=== PATIENT | male | born 1960 | race American Indian/Alaskan Native ===

== ENCOUNTER 2016-09-26 20:10 | Emergency (ER) | payer SELFPAY ==
[2016-09-26] MEDS ORDERED: Sodium Chloride 0.9% 1,000 ML IV ONE (20:27)
--- NOTE | 2016-09-26 20:32 | C.PDOC ---
History Of Present Illness A 55 y/o male with a Hx of DM, c/o dizziness while driving today. Pt notes not having eaten anything since yesterday. Pt reports numbness to the bilateral extremities, but denies headache, LOC, Lightheadedness, fever, chills, nausea, vomiting, diarrhea, or any other complaints. Time Seen by Provider: 09/26/16 20:32 Chief Complaint (Nursing): Dizziness/Lightheaded History Per: Patient History/Exam Limitations: no limitations Onset/Duration Of Symptoms: Hrs Current Symptoms Are (Timing): Still Present Activity At Onset Of Symptoms: Other (Driving) Fall Associated With With Symptoms: No Severity: Mild Recent travel outside of the [place]: No Additional History Per: Patient Past Medical History Reviewed: Historical Data, Nursing Documentation, Vital Signs Vital Signs: Last Vital Signs Temp 98.6 F 09/26/16 20:13 Pulse 97 H 09/26/16 20:13 Resp 20 09/26/16 20:13 BP 126/77 09/26/16 20:13 Pulse Ox 99 09/27/16 00:07 - Medical History PMH: HIV Family History: States: Unknown Family Hx - Social History Hx Alcohol Use: No Hx Substance Use: No Review Of Systems Except As Marked, All Systems Reviewed And Found Negative. Constitutional: Negative for: Fever, Chills Cardiovascular: Negative for: Light Headedness Gastrointestinal: Negative for: Nausea, Vomiting, Diarrhea Neurological: Positive for: Dizziness. Negative for: Other (LOC) Physical Exam - Physical Exam Appears: Non-toxic, No Acute Distress Skin: Warm, Dry Head: Atraumatic, Normacephalic Eye(s): bilateral: Normal Inspection Oral Mucosa: Moist Chest: Symmetrical Cardiovascular: Rhythm Regular, No Murmur Respiratory: Normal Breath Sounds, No Accessory Muscle Use, No Rales, No Rhonchi , No Wheezing Gastrointestinal/Abdominal: Soft, No Tenderness Back: Normal Inspection, No CVA Tenderness Extremity: Normal ROM, No Tenderness, No Pedal Edema, No Deformity, No Swelling Extremity: Bilateral: Normal Color And Temperature Neurological/Psych: Oriented x3, Normal Speech, Normal Cognition, Normal Cranial Nerves, Normal Motor, Normal Sensation, Other (NO focal deficit) Gait: Steady ED Course And Treatment - Laboratory Results Result Diagrams: 09/26/16 20:40 09/26/16 20:40 ECG: Interpreted By Me, Viewed By Me ECG Rhythm: Sinus Rhythm, PVC ECG Interpretation: Normal, No Acute Changes Interpretation Of ECG: Sinus rhythm with PVC, normal tracings Rate From EC O2 Sat by Pulse Oximetry: 99 (RA) Pulse Ox Interpretation: Normal - CT Scan/US CT Head w/o contrast Other Rad Studies (CT/US): Interpreted By Me, Read By Radiologist CT/US Interpretation: EXAM: CT Head Without Intravenous Contrast. CLINICAL HISTORY: 55 years old, male; Pain; Headache; Headache not specified. TECHNIQUE : Axial computed tomography images of the head/brain without intravenous contrast. This CT exam. was performed using one or more of the following dose reduction techniques: automated exposure. control, adjustment of the mA and/or kV according to patient size, and/or use of iterative. reconstruction technique. EXAM DATE/TIME: 09/26/2016 8:27 PM. COMPARISON: No relevant prior studies available. FINDINGS: Brain: Mild volume loss and white matter disease are identified. There is no acute infarct or edema. No hemorrhage. Ventricles : Unremarkable. No ventriculomegaly. Bones/joints: Unremarkable. No acute fracture. Soft tissues: Unremarkable. Sinuses: There is opacification of the right frontal sinus. There is no sinus wall destruction or. sclerosis. Mastoid air cells: There is a small amount of fluid in the right mastoid air cells. IMPRESSION: Findings are suggestive of mild frontal sinusitis.Clinical correlation is advised. Medical Decision Making Medical Decision Making: Impression: A 55 y/o male with a Hx of DM, c/o dizziness while driving today. Plans: CT Head w/o EKG Blood labs IV fluids Glucose, POC UA Reassess Disposition Counseled Patient/Family Regarding: Diagnosis - Disposition Referrals: [facility] [Outside] Disposition: HOME/ ROUTINE Disposition Time: 00:20 Condition: STABLE Additional Instructions: to take own diabetic medication regularly Prescriptions: Glyburide/Metformin HCl [Glyburid-Metformin 1.25-250 mg] 1 tab PO DAILY #30 tab Instructions: Diabetic Hyperglycemia (ED) - POA Present On Arrival: None - Clinical Impression Clinical Impression: Diabetes mellitus, Hyperglycemia - Scribe Statement The provider has reviewed the documentation as recorded by the Scribe Bryan barillas All medical record entries made by the Scribe were at my direction and personally dictated by me. I have reviewed the chart and agree that the record accurately reflects my personal performance of the history, physical exam, medical decision making, and the department course for this patient. I have also personally directed, reviewed, and agree with the discharge instructions and disposition.
[2016-09-26 20:44] LABS: BASO % 0.5 % (0.0-2.0); EOS % 0.5 % (0.0-4.0); HEMATOCRIT 35.6 % (35.0-51.0); LYMPH # 1.8 K/uL (1.0-4.3); LYMPH % 33.7 % (20.0-40.0); MEAN CELL VOLUME 87.6 fL (80.0-94.0); MEAN CORPUSCULAR HEMOGLOBIN 28.5 pg (27.0-31.0); MEAN CORPUSCULAR HGB CONC 32.5 g/dL (33.0-37.0); MEAN PLATELET VOLUME 8.5 fL (7.2-11.7); MONO # 0.5 K/uL (0.0-0.8); RED CELL DISTRIBUTION WIDTH 13.5 % (11.5-14.5); WHITE BLOOD COUNT 5.2 K/uL (4.8-10.8)
[2016-09-26 20:52] LABS: CHLORIDE 101 mmol/L (98-107); SODIUM 137 mmol/L (132-148)
[2016-09-26 20:53] LABS: POTASSIUM 4.5 mmol/L (3.6-5.2)
[2016-09-26 20:55] LABS: ALKALINE PHOSPHATASE 65 U/L (38-126); ALT/SGPT 21 U/L (21-72); AST/SGOT 31 U/L (17-59); BILIRUBIN,TOTAL 0.7 mg/dL (0.2-1.3); BLOOD UREA NITROGEN 14 mg/dL (9-20); CALCIUM 9.1 mg/dl (8.6-10.4); CARBON DIOXIDE 23 mmol/L (22-30); GFR AFRICAN-AMERICAN > 60; GLUCOSE,RANDOM 279 mg/dL (75-110); TOTAL PROTEIN 8.1 g/dL (6.3-8.3)
[2016-09-26] MEDS ORDERED: (Novolin R) Insulin Human Regular 100 units/ml vial SC ONE ×2 (21:22→23:37)
[2016-09-26] MEDS ORDERED: (Novolin R) Insulin Human Regular 100 units/ml vial ONE (21:34)
[2016-09-26 22:16] LABS: RBC URINE < 1 /hpf (0-3); URINE BACTERIA RARE (<OCC); URINE BILIRUBIN NEGATIVE (NEGATIVE); URINE BLOOD NEGATIVE (NEGATIVE); URINE COLOR Yellow (YELLOW); URINE GLUCOSE (UA) 3+ mg/dL (Normal); URINE KETONE NEGATIVE (NEGATIVE); URINE LEUKOCYTE ESTERASE NEG Leu/uL (Negative); URINE PROTEIN 2+ mg/dL (NEGATIVE); URINE UROBILINOGEN NORMAL mg/dL (0.2-1.0); WBC URINE < 1 /hpf (0-5)
[2016-09-26] MEDS ORDERED: Sodium Chloride 0.9% 500 ML IV ONE (23:36)
[2016-09-27 00:24] VITALS: BP 136/78; PULSE 75; RESP 18; TEMP 98.3; O2SAT 100
--- NOTE | 2016-09-27 08:13 | CT ---
PROCEDURE: CT HEAD WITHOUT CONTRAST. HISTORY: Headache COMPARISON: None available. TECHNIQUE: Axial computed tomography images were obtained through the head/brain without intravenous contrast. Radiation dose: Total exam DLP = 906 mGy-cm. This CT exam was performed using one or more of the following dose reduction techniques: Automated exposure control, adjustment of the mA and/or kV according to patient size, and/or use of iterative reconstruction technique. FINDINGS: HEMORRHAGE: No intracranial hemorrhage. BRAIN: No mass effect or edema. Mild volume loss. Scattered focal lucencies in the subcortical and periventricular white matter suggestive for chronic microvascular ischemic change. Focal hypodensity in the left external capsule is suggestive for chronic ischemic change. VENTRICLES: Unremarkable. No hydrocephalus. CALVARIUM: Unremarkable. PARANASAL SINUSES: Opacification of the right frontal sinus. MASTOID AIR CELLS: Small amount of fluid in the right mastoid air cells. OTHER FINDINGS: None. IMPRESSION: Findings suggestive for a mild frontal sinusitis. Clinical correlation. Chronic microvascular ischemic changes. Focal hypodensity in the left external capsule is suggestive for chronic ischemic change. Mild volume loss. If focal neurologic deficit or headache persists, consider MRI. These findings were preliminarily reported at 9:20 p.m. on 09/26/[address] Jose M Massey from [facility].
--- NOTE | 2016-09-27 10:02 | CARD ---
APPROVED REPORT EKG Measurement Heart [id number] <Conclusion> Sinus rhythm with premature supraventricular complexes Otherwise normal ECG
== END 2016-09-27 00:24 | disposition home or self-care (01) ==
LOC: C.ER 20:10
DX: E11.65 Type 2 diabetes mellitus with hyperglycemia (principal); Z79.84 Long term (current) use of oral hypoglycemic drugs
CPT/HCPCS: 70450; 80053; 81001; 82948; 85025; 93005; 96372; 99285; G0480; J7040